=== PATIENT | female | born 1985 | race Caucasian/White ===

== ENCOUNTER 2017-03-12 14:16 | Emergency (ER) | payer OTHER ==
[~2017-03-12] VITALS: Ht 170.2 cm; Wt 63.4 kg
[~2017-03-12 14:16] MED LIST: Colace PO; EFFEXOR XR150 MG PO; FLEXERIL5 MG PO; Feosol PO; LUNESTA1 MG PO; MOBIC7.5 MG PO; MOTRIN600 MG PO; Motrin PO; NAPROSYN500 MG PO; NORCO 5/3251 TABLET PO; PHENERGAN-CODE120 ML PO; PROVENTIL HFA6.7 GM IH; Percocet 5/325,Endoc PO; ROBITUSSIN AC,T10 ML PO; TRAMADOL HCL50 MG PO; TRAZODONE HCL50 MG PO; ZOLOFT50 MG PO
[2017-03-12 16:17] LABS: ADD MIUA? YES; BILIRUBIN NEGATIVE; BLOOD NEGATIVE; COLOR STRAW ((YELLOW)); GLUCOSE (STRIP) NEGATIVE; KETONES NEGATIVE; LEUKOCYTES LARGE; NITRITE NEGATIVE; PROTEIN (STRIP) NEGATIVE; SPECIFIC GRAVITY 1.004 (1.000-1.030); UROBILINOGEN 0.2 MG/DL (0.2-1.0)
[2017-03-12 16:19] LABS: HEMATOCRIT 36.3 % (36.0-46.0); MCH 28.5 PG (29.0-34.0); MCHC 32.5 G/DL (30.0-36.0); MCV 87.7 FL (83-99); MEAN PLAT.VOLUME 11.5 uM^3 (9.5-12.4); PLATELET COUNT 289 K/uL (156-360); RBC DIS.WIDTH-CV 13.5 % (11.8-14.6); RBC DIS.WIDTH-SD 43.6 % (39-53); RED BLOOD COUNT 4.14 M/uL (3.80-5.20); WHITE BLOOD COUNT 8.7 K/uL (4.1-10.2)
[2017-03-12 16:20] LABS: BACTERIA NONE SEEN /HPF; EPITHELIAL CELLS 1+ /HPF; MUCUS NONE SEEN /LPF; RED BLOOD CELLS 0-5 /HPF (0-5); UCUL ADDED? NO; WHITE BLOOD CELLS 20-30 /HPF (0-5)
[2017-03-12 16:31] LABS: CHLORIDE 111 mEq/L (99-109); POTASSIUM 3.4 mEq/L (3.7-5.4); SODIUM 139 mEq/L (136-147)
[2017-03-12 16:33] LABS: GLUCOSE 98 mg/dL (70-99)
[2017-03-12 16:34] LABS: ANION GAP 7 MEQ/L (2-14)
[2017-03-12 16:35] LABS: TOTAL BILIRUBIN 0.5 mg/dL (0.0-1.0)
[2017-03-12 16:37] LABS: ALKALINE PHOSPHATASE 73 IU/L (3-129); GFR ESTIMATE (CALCULATED) > 59 mL/min/
[2017-03-12 16:38] LABS: UREA NITROGEN (BUN) 5 mg/dL (9-23)
[2017-03-12 16:40] LABS: LIPASE 18 U/L (1.0-51.0)
[2017-03-12 17:03] LABS: QUANTITATIVE HCG < 4.0 MIU/ML
[2017-03-12] MEDS ORDERED: NAPROXEN500 MG PO (17:19)
[2017-03-12] MEDS ORDERED: ZOFRAN ODT4 MG PO (17:19)
[2017-03-12 17:46] VITALS: BP 111/78
== END 2017-03-12 17:47 | disposition home or self-care (01) ==
LOC: EME 14:16
DX: R10.33 Periumbilical pain (principal); R11.2 Nausea with vomiting, unspecified; Z96.649 Presence of unspecified artificial hip joint
CPT/HCPCS: 74022; 80053; 81003; 83690; 84702; 85027; 87077; 87086; 87186; 99281; 99284; J1885